=== PATIENT | female | born 1990 | race Caucasian/White ===

== ENCOUNTER → 2020-08-02 | Outpatient (CLI) | payer OTHER ==
[~2020-08-02] MED LIST: CYCLOBENZAPRINE5 MG PO; IBUPROFEN800 MG PO
== END ==
LOC: KOH-I 09:00
DX: S93.402A Sprain of unspecified ligament of left ankle, initial encounter (principal); M79.673 Pain in unspecified foot
CPT/HCPCS: 73218

== ENCOUNTER → 2020-08-08 | Outpatient (CLI) | payer OTHER | LOC: KOH-I 08-02 09:45 | DX: M25.572 Pain in left ankle and joints of left foot (principal); S93.409A Sprain of unspecified ligament of unspecified ankle, initial encounter | CPT/HCPCS: 73721 ==